=== PATIENT | male | born 1985 | race Caucasian/White ===

== ENCOUNTER 2019-02-21 10:53 | Emergency (ER) | payer OTHER ==
[~2019-02-21] VITALS: Ht 175.3 cm; Wt 68.0 kg
== END 2019-02-21 13:45 | disposition home or self-care (01) ==
LOC: ER 10:53
DX: J03.90 Acute tonsillitis, unspecified (principal)

== ENCOUNTER 2020-12-06 17:50 | Emergency (ER) | payer OTHER ==
[~2020-12-06] VITALS: Ht 175.3 cm; Wt 68.0 kg
[2020-12-06] MEDS ORDERED: ACETAMINOPHEN650 M2 PO (22:47)
== END 2020-12-06 22:53 | disposition home or self-care (01) ==
LOC: ER 17:50
DX: R53.81 Other malaise (principal); B34.9 Viral infection, unspecified; T50.B95A Adverse effect of other viral vaccines, initial encounter; Z11.52 Encounter for screening for COVID-19